=== PATIENT | female | born 1970 | race Two or more races ===

== ENCOUNTER → 2019-05-09 | Day surgery (SDC) | payer BC ==
[~2019-05-09] VITALS: Ht 148.6 cm; Wt 150.4 kg
[~2019-05-09] MED LIST: 0.9 % SODIUM CHLORIDE 10 ML DISP.SYRIN. IV PRN; BUPIVACAINE-EPI 0.25%-1:200000 MPF 30 ML VIAL. INJ ONE; CALCIUM CARBONATE 500 MG TAB.CHEW PO PRN; DEXAMETHASONE SOD PHOS 4 MG/ML VIAL ONE; FERR325T14 PO; FERROUS SULFATE 325 MG TABLET. PO SCH; GLYCOPYRROLATE 1 MG/5 ML VIAL. ONE; HYDROcodone/APAP 5/325MG 1 TAB TABLET PO ONE; HYDROcodone/APAP 5/325MG 1 TAB TABLET PO PRN; HYDROmorphone 2 MG/ML VIAL IV PRN; IV RINGERS,LACTATED 1000ML 1,000 ML IV SCH; KETOROLAC 30 MG/ML VIAL. ONE; LIDOCAINE 1% PF 2 ML VIAL. ID PRN; LIDOCAINE 2% PF 5 ML VIAL. ONE; MAG HYDROX/ALUMINUM HYD/SIMETH 30 ML ORAL.SUSP PO PRN; MIDAZOLAM HCL/PF 2 MG/2 ML VIAL. ONE; MORPHINE SULFATE 2 MG/ML VIAL. IV PRN; NALOXONE 0.4 MG/ML VIAL. IV PRN; NEOSTIGMINE METHYLSULFATE 5 MG/5 ML SYRINGE. ONE; NORE-83 PO; OMEP40CA45 PO; ONDANSETRON PF 4 MG/2 ML VIAL. IV PRN; ONDANSETRON PF 4 MG/2 ML VIAL. ONE; PHENYLEPHRINE in 0.9% NACL PF 1 MG/10 ML SYRINGE. IV ONE; PROCHLORPERAZINE 10 MG/2 ML VIAL. IV PRN; PROPOFOL 20 ML IV ONE; ROCURONIUM 50 MG/5 ML VIAL. ONE; SEVOFLURANE 61 TO 120 MINUTES. IH ONE; SIMETHICONE 80 MG TAB.CHEW PO PRN; diphenhydrAMINE 50 MG/ML VIAL IV PRN; diphenhydrAMINE HCL 25 MG CAPSULE PO PRN; fentaNYL PF VIAL 100 MCG/2 ML VIAL IV PRN; fentaNYL PF VIAL 100 MCG/2 ML VIAL ONE
--- NOTE | 2019-05-09 09:57 | PDOC ---
BRIEF OPERATIVE NOTE Date: May 09, 2019 Pre-Op Diagnosis DUB, menorrhagia, desiring permanent sterility Post-Op Diagnosis same Procedure Performed hysteroscopy D&C with truclear system, novasure endometrial ablation, operative laparoscopy with BTL Surgeon Dr. Mervat Lane Anesthesiologist Dr. Townsend Anesthesia Type: General Blood Loss 10cc IV Fluid see anesthesia records Urine Output straight cath prior to procedure Specimens Obtained endometrial currettings Findings uterus sounded to 8.5-9.0cm mildly enlarged RV uterus no significant pelvic adhesive disease normal bilateral tubes and ovaries tissue and one small anterior/fundal fibroid on hysteroscopy Complications none Operative Note [id number] MERVAT LANE MD May 09, 2019 09:56
[2019-05-09] MEDS: fentaNYL PF VIAL 100 MCG/2 ML VIAL IV PRN ×2 (10:30→10:42)
--- NOTE | 2019-05-09 10:52 | OP ---
DATE OF SURGERY: 05/09/2019 PREOPERATIVE DIAGNOSES: Dysfunctional uterine bleeding, menorrhagia, history of anemia, desiring permanent sterility. POSTOPERATIVE DIAGNOSES: Dysfunctional uterine bleeding, menorrhagia, history of anemia, desiring permanent sterility. PROCEDURE: Hysteroscopy, dilation and curettage with TruClear system with NovaSure endometrial ablation. PROCEDURE: Laparoscopy with bilateral tubal ligation. SURGEON: Harsha Lane MD COLLECTION ANALYST: OR personnel. ANESTHESIOLOGIST: Travis Townsend MD ANESTHESIA: General. URINE OUTPUT: Straight catheter prior to procedure. IV FLUIDS: Please see anesthesia records. ESTIMATED BLOOD LOSS: 10 mL. SPECIMEN: Endometrial curettings. FINDINGS: Mildly enlarged retroverted uterus. No significant pelvic adhesive disease. Normal bilateral tubes and ovaries. One small anterior fundal fibroid on hysteroscopy. Normal bilateral tubal ostia, sounded to 8.5-9 cm with just tissue present otherwise. There were no complications. The deficit was about 500 and then we used the soft tissue blade with the TruClear to do the curettings and shave down the fibroids. No complications. DESCRIPTION OF PROCEDURE: This patient was taken to the operating room where general anesthesia was placed. The patient was placed in dorsal lithotomy position in [facility]. The patient's abdomen and vagina were both prepped and draped in the normal sterile fashion and a straight catheter urine had been done prior to my arrival. Upon my arrival, a timeout was performed. Once everyone agreed, a bivalve speculum was placed in the patient's vagina. A single-tooth tenaculum was used to grasp the anterior lip of the cervix. She was dilated up to an 8-9 with the Hegar dilators. She sounded to 8.5-9 cm. The Valtchev uterine manipulator was placed through the endocervical os, locked on the single tooth tenaculum and the bivalve speculum was then removed. Top gloves were discarded and changed. Attention was then turned to the abdomen where a small infraumbilical skin incision was made with the scalpel. She was injected with local there first, then using the scalpel to make a small incision infraumbilical, a curved Pooja used to dissect through the subcuticular layer to the fascia. The 5 mm Visiport was used to directly enter the abdominal cavity. Opening patient pressure was 2-3 mmHg. Carbon dioxide gas was used to then appropriately insufflate the abdominal cavity to maintain a pressure of 15 mmHg. The patient was placed in Trendelenburg position. The suprapubic area was injected again with 3-4 mL of a dilute solution of local, 0.25% Marcaine with epinephrine, and a small incision was made there and it was placed under direct visualization atraumatically. A 4-5 mL of air was placed in the cuff of this. I did move the camera to look at the umbilical port. It was also clear. At this point, a [place] was used to do the examination of the pelvis. A retroverted uterus, normal bilateral tubes and ovaries and no significant pelvic adhesive disease, so slipping both ovaries up and getting the LigaSure to cauterize 2 or 3 areas in the mid area and then going back cauterizing and cutting and going deeper, making sure we were through and through the entire tube into the mesosalpinx, and then doing the same on the right side. Cauterizing 2-3 areas, going back to the middle area, cauterizing and cutting and going and cauterizing and cutting deep again to make sure it was through and through and then I went back and cauterized both edges again. Took pictures of all of this. The cuff was deflated with 4-5 mL of air. The suprapubic port was removed under direct visualization, it was hemostatic. Gas was released from the umbilical port. Both port sites were closed with 4-0 nylon at the skin. At this point, attention was turned vaginally where a weighted speculum was placed in the vagina. The Valtchev uterine manipulator was removed. The hysteroscopy was performed with the above findings and using the soft tissue blade to perform the D and C under direct visualization and then work on that anterior fundal fibroid just to little shave it down by taking all the tissue out. Both tubal ostia were seen clearly and the remainder of the uterine cavity was normal. So, once this was done, that was removed. The NovaSure was set to 6 for the length. It was placed in, opened up, settled at 4.4 for the width. The device was enabled. The cavity assessment check was performed. Once it was in, the cuff was placed up against it with K-Y jelly. The device was unable to perform the cavity assessment check. Once it passed that, it went into the ablation process which lasted 60 seconds. Once it was done, it was removed. The tenaculum was removed. There was minimal bleeding and the procedure was ended. The patient was then awakened from anesthesia and is currently being brought to recovery room in stable condition. HARSHA LANE MD DR: HUI/jose miguel JOB#: [id number] / [id number]
[2019-05-09 10:55] VITALS: BP 115/81
--- NOTE | 2019-05-10 18:06 | PATHOLOGY ---
[facility] Accession Number: [id number] . 01 Material submitted: . endometrium - ENDOMETRIAL CURETTINGS . 01 Clinical history: . Menorrhagia . 02 Diagnosis: Endometrial curettings: - Endometrial polyp. - Inactive/weakly proliferative endometrium. LBQ 05/10/2019 1617 Local . 02 Comment: Sections of the endometrial curettings primarily reveal segments of inactive/weakly proliferative endometrium. There are several segments of endometrial polyp. There is no evidence of hyperplasia or malignancy. (JPM/db; 05/10/2019) . 02 Electronically signed: . Robbie Blanco MD, Pathologist NPI- [id number] . 01 Gross description: . Received in formalin labeled "Atonaljuarez, Anastacia, endometrial curettings," are multiple segments of gill soft tissue measuring 2.5 x 2.1 x 0.2 cm in aggregate dimensions. The specimen is filtered and entirely submitted in cassette A1. (TSD; 05/09/2019) TOB/TOB 05/09/2019 1739 Local . 02 Pathologist provided ICD-10: N84.0, N85.9 . 02 CPT . 560993 Specimen Comment: A courtesy copy of this report has been sent to [phone], [phone] Specimen Comment: [id number] Specimen Comment: Report sent to / DR PANIAGUA Performed at: 01 [facility] [address], [place] [id number] MD Avila Esposito MD Phone: [phone] Performed at: 02 [facility] [address] [place], [place] [id number] MD Robbie Blanco MD Phone: [phone]
== END ==
LOC: SURG 06:42
PROVIDERS: ATTEND Obstetrics & Gynecology
DX: Z30.2 Encounter for sterilization (principal); N93.8 Other specified abnormal uterine and vaginal bleeding; N92.0 Excessive and frequent menstruation with regular cycle; D64.9 Anemia, unspecified; N84.0 Polyp of corpus uteri; K21.9 Gastro-esophageal reflux disease without esophagitis; Z90.49 Acquired absence of other specified parts of digestive tract
CPT/HCPCS: 58563; 58670; 81025; 88305; A7015; J1100; J1885; J2001; J2250; J2370; J2405; J2704; J2710; J3010; J3490; J7030; J7120